=== PATIENT | female | born 1955 | race Caucasian/White ===

== ENCOUNTER 2018-04-24 10:46 | Day surgery (SDC) | payer OTHER ==
[~2018-04-24 10:46] MED LIST: CEFAZOLIN 1 GM INJ; CEFAZOLIN 2 GM/50 ML (PMX) 50 ML IVPB; DESFLURANE 15 MIN; EPHEDrine SULFATE 50 MG/5 ML SYG; GLYCOPYRROLATE 0.4 MG INJ
[2018-04-24] MEDS ORDERED: MIDAZOLAM 1 MG/ML 2 ML INJ (11:59)
[2018-04-24] MEDS ORDERED: METOCLOPRAMIDE 10 MG INJ (11:59)
[2018-04-24] MEDS ORDERED: LABETALOL HCL 20MG INJ IV (12:00)
[2018-04-24] MEDS ORDERED: hydrALAzine 20 MG INJ IV (12:00)
[2018-04-24] MEDS ORDERED: DIPHENHYDRAMINE 50 MG INJ IV (12:00)
[2018-04-24] MEDS ORDERED: OXYCODONE/ACETAMINOPHEN (5/325) TAB PO ×2 (12:00)
[2018-04-24] MEDS ORDERED: HYDROmorphONE 1 MG/5 ML IV SYRINGE IV ×3 (12:00)
[2018-04-24] MEDS ORDERED: MEPERIDINE 25 MG INJ IV (12:00)
[2018-04-24] MEDS ORDERED: HYDROmorphONE 2 MG/ML SYG (12:11)
[2018-04-24] MEDS ORDERED: PROPOFOL 20 ML (12:22)
[2018-04-24] MEDS ORDERED: ROPIVACAINE 0.2% 20 ML VIAL (12:22)
[2018-04-24] MEDS: POLYMYXIN/BACITRACIN 1L IRRIG (12:36)
[2018-04-24] MEDS: BUPIVACAINE 0.25% (MPF) 30 ML INJ (12:47)
[2018-04-24] MEDS ORDERED: ROCURONIUM 50 MG INJ (14:11)
[2018-04-24] MEDS ORDERED: MEPERIDINE 100 MG INJ (14:24)
[2018-04-24] MEDS ORDERED: SUCCINYLCHOLINE CHLORIDE 100 MG/5 ML SYG IV (14:34)
[2018-04-24] MEDS ORDERED: FAMOTIDINE 20 MG INJ (15:58)
[2018-04-24] MEDS ORDERED: LIDOCAINE 2% (SDV) 5 ML INJ (16:05)
[2018-04-24] MEDS ORDERED: NEOSTIGMINE 3 MG/3 ML SYRINGE (16:09)
[2018-04-24] MEDS: ONDANSETRON 4 MG INJ IV (17:35)
[2018-04-24 18:42] LABS: HIV 1&2 ANTIBODY NEGATIVE (NEGATIVE)
[2018-04-24 18:50] LABS: HEPATITIS B SURFACE ANTIBODY NEGATIVE (NEGATIVE)
[2018-04-26 11:48] LABS: HEPATITIS B SURFACE ANTIGEN NEGATIVE (NEGATIVE)
[2018-04-26 12:06] LABS: HEPATITIS C VIRAL ANTIBODY NEGATIVE (NEGATIVE)
== END 2018-04-24 18:37 | disposition home or self-care (01) ==
LOC: SDS 10:46
DX: S52.502P Unspecified fracture of the lower end of left radius, subsequent encounter for closed fracture with malunion (principal); X58.XXXD Exposure to other specified factors, subsequent encounter; I10 Essential (primary) hypertension; E03.9 Hypothyroidism, unspecified
CPT/HCPCS: 25405; 73090; 86703; 86706; 86803; 87340